=== PATIENT | female | born 1950 | race Caucasian/White ===

== ENCOUNTER 2018-11-28 05:26 | Day surgery (SDC) | payer MEDICARE, OTHER ==
[2018-11-28] MEDS: MOXIFLOXACIN 0.5% 3 ML OPH OPER (06:13)
[2018-11-28] MEDS: DICLOFENAC 0.1% 2.5 ML OPH OPER (06:13)
[2018-11-28] MEDS: CYCLOPENTOLATE/PHENYLEPH 2 ML OPH OPER (06:13)
[2018-11-28] MEDS: TROPICAMIDE 1% 15 ML OPH OPER (06:13)
[2018-11-28] MEDS ORDERED: SOD CHLORIDE 0.9% 1,000 ML IV (06:30)
[2018-11-28] MEDS ORDERED: PROPOFOL 200 MG INJ (07:00)
[2018-11-28] MEDS ORDERED: FENTAnyl 50 MCG/ML VIAL IV ×3 (07:30)
[2018-11-28] MEDS ORDERED: ONDANSETRON 4 MG INJ IV (07:30)
[2018-11-28] MEDS ORDERED: MEPERIDINE 25 MG INJ IV (07:30)
[2018-11-28] MEDS ORDERED: LABETALOL HCL 20MG INJ IV (07:30)
[2018-11-28] MEDS ORDERED: EPHEDrine 25 MG/5 ML SYG IV (07:30)
[2018-11-28] MEDS ORDERED: HYDROmorphONE 1 MG/5 ML IV SYRINGE IV ×2 (07:30→08:22)
[2018-11-28] MEDS ORDERED: IPRATROPIUM (NEB) 0.5 MG/2.5 ML AMP HHN (07:30)
[2018-11-28] MEDS ORDERED: hydrALAzine 20 MG INJ IV (07:30)
[2018-11-28] MEDS ORDERED: OXYCODONE/ACETAMINOPHEN (5/325) TAB PO ×2 (07:30)
[2018-11-28] MEDS ORDERED: ALBUTEROL 0.083% (NEB) 2.5 MG/3 ML AMP HHN (07:30)
[2018-11-28] MEDS ORDERED: MIDAZOLAM 1 MG/ML 2 ML INJ IV (07:30)
[2018-11-28] MEDS ORDERED: TRIMETHOBENZAMIDE 100 MG/ML VIAL IM (07:30)
[2018-11-28] MEDS ORDERED: DIPHENHYDRAMINE 50 MG INJ IV (07:30)
[2018-11-28] MEDS: CEFAZOLIN 1 GM INJ (08:32)
[2018-11-28] MEDS: TETRACAINE 0.5% 4 ML OPH (08:32)
[2018-11-28] MEDS: CARBACHOL 0.01% 1.5 ML OPH INJ (08:32)
[2018-11-28] MEDS: EPINEPHrine 1 MG INJ (08:32)
[2018-11-28] MEDS: LIDOCAINE 4% (MPF) 5 ML INJ (08:32)
[2018-11-28] MEDS: GENTAMICIN 80 MG INJ (08:32)
[2018-11-28] MEDS: NA HYALURONATE/CHONDROITIN 0.5 ML SYG (08:32)
[2018-11-28] MEDS: DEXAMETHASONE 4 MG/ML 1 ML INJ (08:32)
[2018-11-28] MEDS: SOD CHLORIDE 0.9% 1,000 ML IV (08:40)
[2018-11-28] MEDS: HYDROmorphONE 1 MG/5 ML IV SYRINGE IV ×2 (08:53→08:54)
== END 2018-11-28 09:35 | disposition home or self-care (01) ==
LOC: SDS 05:26
DX: H25.11 Age-related nuclear cataract, right eye (principal); I10 Essential (primary) hypertension; E78.5 Hyperlipidemia, unspecified
CPT/HCPCS: 66984